=== PATIENT | male | born 1970 | race Caucasian/White ===

== ENCOUNTER → 2017-04-17 | Outpatient (CLI) | payer BC ==
--- NOTE | 2017-04-20 12:51 | SLEEPHOME ---
DATE OF PROCEDURE: 04/17/2017 REFERRING PHYSICIAN: INTERPRETATION: Diagnostic home sleep testing was performed due to concern for the obstructive sleep apnea syndrome in this patient with a history of cardiac rhythm issues. For testing, a NOX-T3 respiratory monitoring device was used. Continuous record was made of pulse, oxygen saturation, airflow, chest and abdominal strain and body position. 9 hours and 59 minutes of data were reviewed. Of these, 6 hours and 42 minutes were marked as time in bed. During the interval marked time in bed, there were 24 respiratory events identified of 10 seconds in duration or greater for a respiratory event index of 3.6. Baseline pulse rate was 55 beats per minute. Pulse rate ranged 47-81. Baseline saturation 94%. The lowest oxygen saturation of 89%. Testing was performed in both the supine and non-supine positions. IMPRESSION: Borderline home sleep testing with repetitive respiratory events with a respiratory event index of only 3.6 is suggestive but not confirmatory for obstructive sleep apnea syndrome. Should the patient experience symptoms of organic brain syndrome, referral for formal in-laboratory pressure titration is more sensitive to identify mild obstructive sleep apnea disease.
== END ==
LOC: M SLEEP HO 12:52
PROVIDERS: ATTEND Physician Assistant Medical
DX: G47.30 Sleep apnea, unspecified (principal)